=== PATIENT | male | born 1990 | race Caucasian/White ===

== ENCOUNTER 2018-06-02 19:41 | Emergency (ER) | payer SELFPAY ==
[2018-06-02 19:50] VITALS: BP 128/73
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
[2018-06-02] MEDS ORDERED: CEPHALEXIN 500 MG CAP PO ONE (20:11)
== END 2018-06-02 20:29 | disposition home or self-care (01) ==
DX: S51.011A Laceration without foreign body of right elbow, initial encounter (principal); V18.2XXA Unspecified pedal cyclist injured in noncollision transport accident in nontraffic accident, initial encounter; Y93.55 Activity, bike riding; Y92.828 Other wilderness area as the place of occurrence of the external cause

== ENCOUNTER 2018-09-25 12:26 | Emergency (ER) | payer OTHER ==
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
[2018-09-25 14:48] VITALS: BP 125/78
== END 2018-09-25 14:49 | disposition home or self-care (01) ==
DX: S20.311A Abrasion of right front wall of thorax, initial encounter (principal); S20.221A Contusion of right back wall of thorax, initial encounter; S70.211A Abrasion, right hip, initial encounter; V17.0XXA Pedal cycle driver injured in collision with fixed or stationary object in nontraffic accident, initial encounter; Y92.838 Other recreation area as the place of occurrence of the external cause; Y93.55 Activity, bike riding; Y99.9 Unspecified external cause status